=== PATIENT | female | born 1970 | race Caucasian/White ===

== ENCOUNTER 2016-11-02 07:03 | Day surgery (SDC) | payer BC ==
[~2016-11-02 07:03] MED LIST: RINGER'S SOLUTION,LACTATED 1,000 ML IV PRN; ceFAZolin SODIUM 2 GM in DEXTROSE 5 % IN WATER 50 ML IV PRN
[2016-11-02] MEDS ORDERED: BUPIVACAINE HCL 50 ML VIAL IJ ONE (07:50)
[2016-11-02] MEDS ORDERED: LIDOCAINE HCL 50 ML VIAL IJ ONE (07:50)
[2016-11-02] MEDS ORDERED: DEXAMETHASONE SOD PHOSPHATE 4 MG/ML VIAL IJ ONE (08:49)
[2016-11-02 09:58] VITALS: BP 132/76
== END 2016-11-02 07:04 | disposition home or self-care (01) ==
LOC: AMB 07:03
PROVIDERS: ATTEND Student in an Organized Health Care Education/Training Program
PROC: 0QBP0ZZ Excision of Left Metatarsal, Open Approach (ICD-10-PCS; principal; 2016-11-02 08:00)
DX: M77.42 Metatarsalgia, left foot (principal); Z68.42 Body mass index [BMI] 45.0-49.9, adult